=== PATIENT | female | born 1985 | race Caucasian/White ===

== ENCOUNTER 2021-07-02 08:12 | Inpatient (IN) ==
[2021-07-02] MEDS ORDERED: OXYTOCIN 30 UNITS/500 ML BAG IV PRN ×3 (09:17→17:21)
--- NOTE | 2021-07-02 09:26 | History & Physical Report ---
Date of Service July 02, 2021 Assessment & Plan (1) Premature rupture of membranes: Plan: Admit, routine labs, start Pitocin for augmentation General if patient request Anticipate spontaneous vaginal delivery (2) 40 weeks gestation of : (3) Elevated BP without diagnosis of hypertension: Plan: Noted elevated blood pressure x2, will obtain PIH labs. [place] the blood pressures greater than 4 hours, will meet criteria for at least gestational hypertension (4) AMA (advanced maternal age) multigravida 35+: Plan: Declined genetics (5) Obesity (BMI 30-39.9): History of Present Illness Chief Complaint: Leaking Primary Care Provider: Benedicto Garza MD Patient is a 36-year-old -0-1-1 at 40 weeks and 3 days dated by 7-week ultrasound who presented to labor and delivery for rupture of membranes at 6:45 AM this morning. Denies contractions, vaginal bleeding. Notes good movement. Denies headache, blurry vision, right upper quadrant or epigastric pain. Otherwise feeling well. Scheduled for induction on 07/03/2021. Complications this include advanced maternal age, declined genetics, class I obesity and Rh- status Allergies Allergy/AdvReac Type Severity Reaction Status Date / Time fisher Allergy Intermediate HIVES Verified 10/04/20 10:22 No Known Drug Allergies Allergy Unknown NONE Unverified 10/04/20 10:22 Home Medications Medication Instructions Recorded Confirmed Type vits no.124-ferrous fum 1 tab PO DAILY 07/02/21 07/02/21 History 27 mg iron-folic acid 800 mcg tablet ( Vitamin) Patient History Surgical History History of dental surgery Tooth extraction History of dilatation and curettage D&E FOR MAB Family History Grandmother (Paternal) Cancer Unknown Hypertension Grandfather (Paternal) Diabetes Grandfather (Maternal) Diabetes Mother Thyroid disorder Grandmother (Maternal) Thyroid disorder Social History Smoking Status: Never smoker Hx Alcohol Use: No Hx Substance Use: No Preferred Language: Georgian Monitoring Analyst Required: No Beliefs That Will Affect Care: None marital status: Current Living Situation: Spouse Other Information That Helps Us Care for You: No Feels Safe at Home: Yes Safety Concerns: Feels Safe At This Time OB History [employer] History See H+P Review of Systems All systems reviewed & are unremarkable except as noted in HPI & below Physical Exam Constitutional: WD/WN, vitals as above Respiratory: normal respiratory effort, lungs clear to auscultation Cardiovascular: RRR, no murmur, no edema Gastrointestinal (Abdomen): normal bowel sounds, soft, nontender, no hepatosplenomegaly Cephalic EFW 3800g Genitourinary: no vaginal lesions, no adnexal mass Sterile speculum: gross clear fluid from OS, nitrazine positive FHT: baseline 1 45-1 50, moderate variability, no accelerations, no decelerations, category 1 Tocometer: Quiescent Cervix: 3/50/-2 Results & Data ([facility]) Vital Signs (Past 12 Hours) Vital Signs Pulse BP 07/02/21 09:05 89 144/81 H 07/02/21 08:44 97 H 143/84 H
[2021-07-02 09:39] LABS: Hematocrit (blood only) 34.9 % (37-47); Mean Corpuscular Hemoglobin 31.4 pg (25-34); Mean Corpuscular Hgb Conc 34.4 g/dL (32-36); Mean Corpuscular Volume 91.4 fL (80-100); Mean Platelet Volume 9.8 fL (7.4-10.4); Platelet Count 247 K/uL (130-400); RDW Coefficient of Variation 12.9 % (11.5-14.5); RDW Standard Deviation 42.5 fL (36.4-46.3); Red Blood Count 3.82 M/uL (4.2-5.4); White Blood Count 9.41 K/uL (4.8-10.8)
[2021-07-02 10:07] LABS: Albumin Globulin Ratio 1.1 (0.9-2); Albumin Level 3.3 gm/dl (3.4-5.0); BUN Creatinine Ratio 20.4 (10-20); Bilirubin,Total 0.5 mg/dl (0.2-1.0); Calcium 8.7 mg/dl (8.5-10.1); Creatinine Clr Calc Pharmacy 220.1 ml/min; Est GFR (African American) 143.2 ml/min; Est GFR (Non-African American) 123.6 ml/min; Globulin 3.1 gm/dl (2.5-4.0); Potassium 3.7 mmol/L (3.5-5.1); Total Protein 6.4 gm/dl (6.0-8.3)
[2021-07-02] MEDS: LACTATED RINGER'S 1,000 ML IV PRN ×2 (10:14→14:21)
[2021-07-02 11:23] LABS: Creatinine Urine Random 79.7 mg/dl; Protein Creatinine Ratio Urine 0.3 (0-0.2); Total Protein Urine Random 20.4 mg/dl (0-11.9)
[2021-07-02] MEDS ORDERED: ePHEDrine sulfate 50 MG/ML AMP ONE (13:56)
[2021-07-02] MEDS ORDERED: SODIUM CHLORIDE 0.9% INJ 10 ML VIAL ONE (13:56)
[2021-07-02] MEDS ORDERED: fentaNYL citrate 100 MCG/2 ML VIAL ONE (13:56)
[2021-07-02] MEDS ORDERED: BUPIVACAINE 0.25% 30 ML VIAL ONE (13:57)
[2021-07-02] MEDS ORDERED: fentaNYL 2MCG/ML ROPIVACAINE 1.25MG/ML 100 ML BAG EPI ONE (13:57)
[2021-07-02] MEDS ORDERED: ONDANSETRON INJ 2 MG/ML 2 ML VIAL IV PRN (14:12)
[2021-07-02] MEDS ORDERED: NALOXONE HCL 0.4 MG/1 ML VIAL/CARP IV PRN (14:12)
[2021-07-02] MEDS ORDERED: diphenhydrAMINE 50 MG/ML VIAL IV PRN (14:12)
[2021-07-02] MEDS ORDERED: NALBUPHINE HCL INJ 10 MG/ML AMP IV PRN (14:12)
[2021-07-02] MEDS ORDERED: ePHEDrine sulfate 50 MG/ML AMP IV PRN (14:12)
[2021-07-02] MEDS ORDERED: fentaNYL 2MCG/ML ROPIVACAINE 1.25MG/ML 100 ML BAG EPI PRN (14:12)
[2021-07-02] MEDS ORDERED: NALOXONE HCL 1 MG in SODIUM CHLORIDE 0.9% 1000ML 1,000 ML IV PRN (14:12)
--- NOTE | 2021-07-02 14:26 | Anesthesiology Consultation ---
Date of Service July 02, 2021 Assessment & Plan Chart Review Chart Review: Patient NOT seen in Pre Admission Testing and Acceptable Risk for Labor Epidural Consults Requested none ASA ASA2 Proposed Anesthesia Anesthesia Type: Labor Epidural and CSE Risk / Benefits Reviewed With: PT / POA / Parent / Guardian, Accepts Plan and Informed Consent Obtained History Height/Weight Height: 5 ft 10 in Weight: 121.109 kg Allergies Allergy/AdvReac Type Severity Reaction Status Date / Time fisher Allergy Intermediate HIVES Verified 10/04/20 10:22 No Known Drug Allergies Allergy Unknown NONE Unverified 10/04/20 10:22 Medications Home Medications Medication Instructions Recorded Confirmed Last Taken vits no.124-ferrous fum 1 tab PO DAILY 07/02/21 07/02/21 07/01/21 27 mg iron-folic acid 800 mcg tablet ( Vitamin) Active Medications Generic Name Dose Route Start Last Admin Trade Name Freq PRN Reason Stop Dose Admin Lactated Ringer's 1,000 mls @ 125 mls/hr 07/02/21 09:17 07/02/21 14:21 Lr IV 07/04/21 09:16 999 mls/hr .Q8H PRN Administration L&D Protocol Protocol Oxytocin 30 units in 500 mls @ 4 mls/hr 07/02/21 09:20 07/02/21 12:00 Pitocin IV 07/04/21 09:19 0.36 units/hr .Q24H PRN 6 mls/hr Labor Induction/Augmentation Titration Protocol 0.24 UNITS/HR NPO Date Last Intake of Fluids: 07/02/21 Time Last Intake of Fluids: 12:00 Date Last Intake of Solids: 07/01/21 Time Last Intake of Solids: 18:00 Exercise / Class Metabolic Activity II 4-5 Yardwork/Stairs/Walk up hill Past Family History Family History Grandmother (Paternal) Cancer Unknown Hypertension Grandfather (Paternal) Diabetes Grandfather (Maternal) Diabetes Mother Thyroid disorder Grandmother (Maternal) Thyroid disorder Past Surgical History Surgical History History of dental surgery Tooth extraction History of dilatation and curettage D&E FOR MAB Past Anesthesia History No Hx of Anesthesia Complications and No Family Hx of Anesthesia Complications History of PONV No Hx of PONV and No Hx of Motion Sickness Social History Smoking Status: Never smoker Hx Alcohol Use: No Hx Substance Use: No substance use type: does not use Review of Systems no chest pain or sob Physical Exam Vital Signs Last Vital Signs Temp 36.7 C 07/02/21 13:30 Pulse 88 07/02/21 14:24 Resp 18 07/02/21 12:30 BP 109/58 L 07/02/21 13:53 Pulse Ox 98 07/02/21 14:24 Constitutional + obese ENMT Mouth: no TMJ abnormality Thyromental Distance: > or= 3.5 Finger Breadths Mallampati Class: II Neck normal visual inspection Respiratory normal respiratory effort Auscultation: lungs clear to auscultation bilaterally Cardiovascular Rate/Rhythm: regular rate and regular rhythm Musculoskeletal Spine: normal cervical ROM Neurologic moves all extremities Psychiatric Orientation: alert and oriented x 3 Testing Laboratory Results 07/02/21 09:26 07/02/21 09:26 Blood Type O Negative 07/02/21 09:26 Antibody Screen NEGATIVE 07/02/21 09:26
--- NOTE | 2021-07-02 15:27 | Labor Progress Brief Note ---
Date of Service July 02, 2021 Subjective Comfortable on epidural Assessment & Plan (1) Premature rupture of membranes: Plan: Anticipate spontaneous vaginal delivery (2) 40 weeks gestation of : (3) AMA (advanced maternal age) multigravida 35+: Plan: Declined genetics (4) Obesity (BMI 30-39.9): (5) Preeclampsia: Plan: Meets criteria at this point for elevated blood pressures 4 hours apart and a protein: creatinine ratio of 0.3 Current blood pressure 146/76 We will continue to monitor (6) Rh negative status during in third trimester: Plan: RhoGAM if indicated Admission and Anticipated Discharge Date Admission Date: July 02, 2021 Physical Exam Genitourinary: GHT: Baseline 155, moderate variability, no accelerations, variable decelerations Tocometer: Contractions every 2-minute, pit at 6 Results & Data ([place]) Vital Signs (Past 12 Hours) Vital Signs Temp Pulse Resp BP Pulse Ox 07/02/21 15:19 78 98 07/02/21 15:17 75 146/76 H 07/02/21 15:14 76 94 07/02/21 15:09 94 H 97 07/02/21 15:04 84 98 07/02/21 15:00 36.7 C 18 07/02/21 14:59 94 H 98 07/02/21 14:57 86 135/77 07/02/21 14:55 97 H 93 07/02/21 14:54 89 97 07/02/21 14:53 90 137/74 07/02/21 14:49 85 96 07/02/21 14:46 90 136/65 07/02/21 14:44 98 H 135/67 97 07/02/21 14:42 88 145/72 H 07/02/21 14:40 85 131/62 07/02/21 14:39 87 136/64 98 07/02/21 14:36 80 154/63 H 07/02/21 14:34 80 157/73 H 100 07/02/21 14:30 18 07/02/21 14:29 83 98 07/02/21 14:28 88 173/79 H 07/02/21 14:24 88 98 07/02/21 14:19 85 100 07/02/21 13:53 90 109/58 L 07/02/21 13:30 36.7 C 07/02/21 12:30 18 07/02/21 12:29 85 117/59 L 07/02/21 12:00 18 07/02/21 11:34 84 123/71 07/02/21 11:00 36.8 C 18 07/02/21 10:27 74 141/79 H 07/02/21 10:00 18 07/02/21 09:35 86 140/80 07/02/21 09:20 93 H 135/73 07/02/21 09:05 89 144/81 H 07/02/21 08:45 37.1 C 07/02/21 08:44 97 H 143/84 H
[2021-07-02] MEDS ORDERED: oxyCODONE/ACETAMINOPHEN 5mg/325mg TAB PO PRN (17:21)
[2021-07-02] MEDS ORDERED: ACETAMINOPHEN 325 MG TAB PO PRN (17:21)
[2021-07-02] MEDS ORDERED: BENZOCAINE 20% AER SPR 82.5 GM CAN EXT PRN (17:21)
[2021-07-02] MEDS ORDERED: HYDROCORTISONE ACETATE 25 MG SUPP PR PRN (17:21)
[2021-07-02] MEDS ORDERED: DIPHTHERIA/TETANUS/PERTUSSIS 0.5 ML SYR/VIAL IM ONE (17:21)
[2021-07-02] MEDS ORDERED: bisacodyL 10 MG SUPP PR PRN (17:21)
[2021-07-02] MEDS ORDERED: IBUPROFEN 600 MG TAB PO PRN (17:21)
--- NOTE | 2021-07-02 17:23 | Delivery Summary ---
Vaginal Delivery Summary Date of Service July 02, 2021 Vaginal Delivery Summary Delivery Note History synopsis: Patient is a 36-year-old -0-1-1 admitted at 40 weeks and 3 days for premature rupture of membranes. During admission patient was started for oxytocin for augmentation, and met criteria for preeclampsia without severe features based on elevated blood pressures 4 hours apart and protein creatinine ratio of 0.3. Patient received an epidural for pain control. She progressed to complete and I was called for delivery Delivery Summary: Patient was placed in the dorsal lithotomy position. She was prepped and draped in the usual sterile fashion. Upon maternal pushing the head was delivered atraumatically followed by the anterior shoulders, posterior shoulders then the remainder of the infants body. The infants mouth and nose were bulb suction below the level of the perineum. A male was delivered at 1707, weight pending with APGARS of 9 at 1 minute and9 at 5 minutes. The umbilical cord was clamped times two and cut after 1 minute of delayed cord clamping. The was handed off to the awaiting nursing staff. Cord blood gases were obtained. The placenta delivered intact with three vessel cord at 1710.noted trailing membranes with jeweler grasped with ring forceps and were able to be teased from the cervix. No remaining membranes were felt on examination. Placenta was sent pathology (hold). Thirty units of Pitocin were added to the IV fluid and allowed to run freely. Uterine massage was performed until uterus was deemed firm. Upon inspection of the perineum, vagina and cervix were intact.Second degree laceration was noted which was repaired with 3-0 vicryl in the usual fashion. Upon re-inspection the patient was hemostatic. Uterus again massaged and found to be firm. Needle and sponge counts were correct x2. Patient was stable and allowed to recover in L&D room. was stable and remained in room with mother in the Family Care Unit.
--- NOTE | 2021-07-02 17:36 | Anesthesia Procedure Note ---
Date of Service July 02, 2021 Anesthesia Post Epidural Note Vital Signs Vital Signs: Temp Pulse Resp BP Pulse Ox 36.7 C 75 20 126/74 91 07/02/21 15:00 07/02/21 17:21 07/02/21 16:00 07/02/21 17:21 07/02/21 17:10 Notes Mental Status: alert / awake / arousable and participated in evaluation Nausea / Vomiting: adequately controlled Pain: adequately controlled Airway Patency, RR, SpO2: stable & adequate BP & HR: stable & adequate Hydration State: stable & adequate Neuraxial Anesthesia: was administered and sensory block is resolving Anesthetic Complications: no major complications apparent and Pt Satisfied with anesthetic care Epidural: Removed without complications and With tip intact
[2021-07-03 07:10] LABS: Hematocrit (blood only) 31.3 % (37-47); Hemoglobin 10.5 g/dL (12.0-16.0); Mean Corpuscular Hemoglobin 31.1 pg (25-34); Mean Corpuscular Hgb Conc 33.5 g/dL (32-36); Mean Corpuscular Volume 92.6 fL (80-100); Mean Platelet Volume 9.8 fL (7.4-10.4); Platelet Count 212 K/uL (130-400); RDW Standard Deviation 43.3 fL (36.4-46.3); Red Blood Count 3.38 M/uL (4.2-5.4); White Blood Count 9.72 K/uL (4.8-10.8)
--- NOTE | 2021-07-03 07:38 | Obstetrical Progress Note ---
Date of Service July 03, 2021 Assessment & Plan Admission and Anticipated Discharge Date Admission Date: July 02, 2021 Subjective Patient is seen and examined. She feels well, no complaints. Desires d/c tis evening Ambulating without dizziness Voiding without difficulty Tolerating regular diet with out N&V Bleeding is minimal No fever/ chills/ CP/ SOB/ N&V/ Leg pain Breast feeding without problems Vital Signs Temp Pulse Resp BP Pulse Ox 07/03/21 04:00 37.1 C 68 20 124/74 99 07/03/21 00:15 36.5 C 75 20 114/74 98 07/02/21 20:59 36.5 C 97 H 18 134/84 98 Lab Results 07/02/21 07/02/21 07/02/21 Range/Units 09:15 09:26 09:26 WBC 9.41 (4.8-10.8) K/uL RBC 3.82 L (4.2-5.4) M/uL Hgb 12.0 (12.0-16.0) g/dL Hct 34.9 L (37-47) % MCV 91.4 (80-100) fL MCH 31.4 (25-34) pg MCHC 34.4 (32-36) g/dL RDW Std Deviation 42.5 (36.4-46.3) fL RDW Coeff of Heladio 12.9 (11.5-14.5) % Plt Count 247 (130-400) K/uL MPV 9.8 (7.4-10.4) fL Sodium (136-145) mmol/L Potassium (3.5-5.1) mmol/L Chloride (98-107) mmol/L Carbon Dioxide (21-32) mmol/L Anion Gap (3-11) BUN (6-23) mg/dl Creatinine (0.6-1.2) mg/dl Est Cr Clr Drug Dosing ml/min Est GFR ( Amer) ml/min Est GFR (Non-Af Amer) ml/min BUN/Creatinine Ratio (10-20) Glucose (70-99(Fasting)) mg/dl Calcium (8.5-10.1) mg/dl Total Bilirubin (0.2-1.0) mg/dl AST (13-39) U/L ALT (7-52) U/L Alkaline Phosphatase (34-104) U/L Total Protein (6.0-8.3) gm/dl Albumin (3.4-5.0) gm/dl Globulin (2.5-4.0) gm/dl Albumin/Globulin Ratio (0.9-2) Ur Random Creatinine 79.7 mg/dl U Random Total Protein 20.4 H (0-11.9) mg/dl Protein/Creatinin Ratio 0.3 H (0-0.2) RPR (Nonreactive) Blood Type O Negative Antibody Screen NEGATIVE 07/02/21 07/02/21 07/03/21 Range/Units 09:26 09:26 06:42 WBC 9.72 (4.8-10.8) K/uL RBC 3.38 L (4.2-5.4) M/uL Hgb 10.5 L (12.0-16.0) g/dL Hct 31.3 L (37-47) % MCV 92.6 (80-100) fL MCH 31.1 (25-34) pg MCHC 33.5 (32-36) g/dL RDW Std Deviation 43.3 (36.4-46.3) fL RDW Coeff of Heladio 13.0 (11.5-14.5) % Plt Count 212 (130-400) K/uL MPV 9.8 (7.4-10.4) fL Sodium 136 (136-145) mmol/L Potassium 3.7 (3.5-5.1) mmol/L Chloride 105 (98-107) mmol/L Carbon Dioxide 22 (21-32) mmol/L Anion Gap 9 (3-11) BUN 10 (6-23) mg/dl Creatinine 0.49 L (0.6-1.2) mg/dl Est Cr Clr Drug Dosing 220.1 ml/min Est GFR ( Amer) 143.2 ml/min Est GFR (Non-Af Amer) 123.6 ml/min BUN/Creatinine Ratio 20.4 H (10-20) Glucose 81 (70-99(Fasting)) mg/dl Calcium 8.7 (8.5-10.1) mg/dl Total Bilirubin 0.5 (0.2-1.0) mg/dl AST 14 (13-39) U/L ALT 8 (7-52) U/L Alkaline Phosphatase 101 (34-104) U/L Total Protein 6.4 (6.0-8.3) gm/dl Albumin 3.3 L (3.4-5.0) gm/dl Globulin 3.1 (2.5-4.0) gm/dl Albumin/Globulin Ratio 1.1 (0.9-2) Ur Random Creatinine mg/dl U Random Total Protein (0-11.9) mg/dl Protein/Creatinin Ratio (0-0.2) RPR Nonreactive (Nonreactive) Blood Type Antibody Screen PE: General: Alert, orientedx3, NAD Abd: soft, NT, fundus firm, below Umbilicus Perineum intact, Lochia rubra minimal Ext; NT, no edema AP: 36 yo s/p , ppd# 1 VSS Afebrile doing well Continue routine care All questions were answered D/C home after 5 pm if baby will be discharged Results & Data ([facility]) Vital Signs (Past 12 Hours) Vital Signs Temp Pulse Resp BP Pulse Ox 07/03/21 04:00 37.1 C 68 20 124/74 99 07/03/21 00:15 36.5 C 75 20 114/74 98 07/02/21 20:59 36.5 C 97 H 18 134/84 98
[2021-07-03] MEDS ORDERED: PRENATAL VITAMIN 1 TAB PO SCH ×2 (08:00→09:00)
[2021-07-03] MEDS ORDERED: FERROUS SULFATE 325 MG TAB PO SCH (08:00)
[2021-07-03] MEDS: DOCUSATE SODIUM 100 MG CAP PO SCH ×2 (08:29→08:31)
[2021-07-03] MEDS ORDERED: bisacodyL 5 MG TABEC PO SCH (20:00)
== END 2021-07-03 18:15 | disposition home or self-care (01) | DRG 807 ==
LOC: OPB 08:12 → 4S1 08:15 → 4E2 20:38
DX: O09.523 Supervision of elderly multigravida, third trimester; O99.214 Obesity complicating childbirth; Z37.0 Single live birth; E66.9 Obesity, unspecified; Z3A.40 40 weeks gestation of pregnancy; O14.94 Unspecified pre-eclampsia, complicating childbirth; O70.1 Second degree perineal laceration during delivery; O42.92 Full-term premature rupture of membranes, unspecified as to length of time between rupture and onset of labor

== ENCOUNTER 2022-11-20 07:44 | Inpatient (IN) ==
[2022-11-20] MEDS ORDERED: OXYTOCIN 30 UNITS/500 ML BAG IV PRN ×4 (10:36→18:16)
[2022-11-20] MEDS ORDERED: LIDOCAINE 1% LOCAL 20 ML VIAL INFIL PRN (10:36)
--- NOTE | 2022-11-20 10:41 | Obstetrical Progress Note ---
Date of Service November 20, 2022 Assessment & Plan (1) : Plan: Induction for prolonged gestation pt doing well FHR; CAT1 Ctx Minimal bedside sono: Vt VE; 1-2/thick/post Kelsey bulb inserted thru cervix.w/30 cc Pt tolerated procedure well Low dose pt pt agreed to procedure before bulb insertion Admission and Anticipated Discharge Date Admission Date: November 20, 2022 Results & Data Vital Signs (Past 12 Hours) Vital Signs Temp Pulse Resp BP 11/20/22 07:57 36.8 C 20 11/20/22 07:53 75 131/75
[2022-11-20] MEDS: LACTATED RINGER'S 1,000 ML IV PRN ×2 (11:11→15:59)
[2022-11-20 11:32] LABS: Hematocrit (blood only) 34.6 % (37.0-47.0); Hemoglobin 11.8 g/dl (12.0-16.0); Mean Corpuscular Hemoglobin 31.8 pg (25.0-34.0); Mean Corpuscular Hgb Conc 34.1 g/dL (32.0-36.0); Mean Corpuscular Volume 93.3 fL (80.0-100.0); Mean Platelet Volume 10.4 fL (9.4-12.4); Platelet Count 205 K/uL (130-400); RDW Standard Deviation 44.7 fL (36.4-46.3); Red Blood Count 3.71 M/uL (4.20-5.40); White Blood Count 7.88 K/ul (4.8-10.8)
[2022-11-20] MEDS ORDERED: Nursing to Pharmacy Communication SCH (12:27)
--- NOTE | 2022-11-20 15:36 | Obstetrical Progress Note ---
Date of Service November 20, 2022 Assessment & Plan (1) : Plan: Pt doing well FHR; CAT1 VE; 3/50/-3 Pitocin.: 12MU AROM with amnio hook Admission and Anticipated Discharge Date Admission Date: November 20, 2022 Results & Data Vital Signs (Past 12 Hours) Vital Signs Temp Pulse Resp BP 11/20/22 07:57 36.8 C 20 11/20/22 15:24 76 11/20/22 15:24 111/68 11/20/22 14:26 78 11/20/22 14:26 116/59 L 11/20/22 13:23 75 11/20/22 13:23 111/61 11/20/22 12:22 79 11/20/22 12:22 106/61 11/20/22 11:14 78 11/20/22 11:14 115/64 11/20/22 07:53 75 131/75
[2022-11-20] MEDS ORDERED: LIDOCAINE 2%/EPINEPHRINE 1:200,000 20 ML PF ONE (15:53)
[2022-11-20] MEDS ORDERED: BUPIVACAINE 0.25% PF 30 ML VIAL ONE (15:53)
[2022-11-20] MEDS ORDERED: ePHEDrine sulfate 50 MG/ML AMP ONE (15:53)
[2022-11-20] MEDS ORDERED: fentaNYL citrate PF 100 MCG/2 ML VIAL ONE (15:53)
[2022-11-20] MEDS ORDERED: SODIUM CHLORIDE 0.9% PF INJ 10 ML VIAL ONE (15:53)
[2022-11-20] MEDS ORDERED: fentaNYL 2MCG/ML ROPIVACAINE 1.25MG/ML 100 ML BAG EPI ONE (15:54)
[2022-11-20] MEDS ORDERED: NALBUPHINE HCL INJ 10 MG/ML AMP IV PRN (16:04)
[2022-11-20] MEDS ORDERED: SODIUM CHLORIDE 0.9% PF INJ 10 ML VIAL EPI STA (16:04)
[2022-11-20] MEDS ORDERED: diphenhydrAMINE 50 MG/ML VIAL IV PRN (16:04)
[2022-11-20] MEDS ORDERED: fentaNYL citrate PF 100 MCG/2 ML VIAL EPI STA (16:04)
[2022-11-20] MEDS ORDERED: ePHEDrine sulfate 50 MG/ML AMP IV PRN (16:04)
[2022-11-20] MEDS ORDERED: NALOXONE HCL 1 MG in SODIUM CHLORIDE 0.9% 1000ML 1,000 ML IV PRN (16:04)
[2022-11-20] MEDS ORDERED: LIDOCAINE 2%/EPINEPHRINE 1:200,000 20 ML PF EPI STA (16:04)
[2022-11-20] MEDS ORDERED: NALOXONE HCL 0.4 MG/1 ML VIAL/CARP IV PRN (16:04)
[2022-11-20] MEDS ORDERED: LIDOCAINE 2% MPF LOCAL 5 ML VIAL EPI PRN (16:04)
[2022-11-20] MEDS ORDERED: ROPIVACAINE 0.5% PF 5 MG/ML 20 ML VIAL EPI PRN (16:04)
[2022-11-20] MEDS ORDERED: fentaNYL 2MCG/ML ROPIVACAINE 1.25MG/ML 100 ML BAG EPI PRN (16:04)
[2022-11-20] MEDS ORDERED: BUPIVACAINE 0.25% PF 30 ML VIAL EPI STA (16:04)
[2022-11-20] MEDS ORDERED: BUPIVACAINE 0.25% PF 30 ML VIAL EPI PRN (16:04)
[2022-11-20] MEDS ORDERED: fentaNYL citrate PF 100 MCG/2 ML VIAL EPI PRN (16:04)
[2022-11-20] MEDS ORDERED: SODIUM CHLORIDE 0.9% PF INJ 10 ML VIAL EPI PRN (16:04)
--- NOTE | 2022-11-20 16:05 | Anesthesiology Consultation ---
Date of Service November 20, 2022 Assessment & Plan Chart Review Chart Review: Patient NOT seen in Pre Admission Testing and Acceptable Risk for Labor Epidural Proposed Anesthesia Anesthesia Type: Labor Epidural History Height/Weight Height: 5 ft 11 in Weight: 121.109 kg Allergies Allergy/AdvReac Type Severity Reaction Status Date / Time fisher Allergy Intermediate HIVES Verified 02/17/22 09:52 No Known Drug Allergies Allergy Unknown NONE Unverified 02/17/22 09:52 Medications Home Medications Medication Instructions Recorded Confirmed Last Taken ferrous sulfate 325 mg (65 mg 325 mg PO DAILY 11/20/22 11/20/22 11/20/22 07:00 iron) tablet (Iron (ferrous sulfate)) vits no.124-ferrous fum 1 tab PO DAILY 11/20/22 11/20/22 11/19/22 07:00 27 mg iron-folic acid 800 mcg tablet ( Vitamin) Active Medications Generic Name Dose Route Start Last Admin Trade Name Freq PRN Reason Stop Dose Admin Lactated Ringer's 1,000 mls @ 125 mls/hr 11/20/22 10:36 11/20/22 15:59 Lr IV 11/22/22 10:35 999 mls/hr .Q8H PRN Administration L&D Protocol Protocol Oxytocin 30 units in 500 mls @ 14 mls/hr 11/20/22 10:36 11/20/22 15:34 Pitocin IV 11/22/22 10:35 0.84 units/hr .Q24H PRN 14 mls/hr Labor Induction/Augmentation Titration Protocol 0.84 UNITS/HR Past Medical History Medical History (Updated 11/20/22 @ 10:39 by Miguel Toney MD) 40 weeks gestation of AMA (advanced maternal age) multigravida 35+ Obesity (BMI 30-39.9) Rh negative status during in third trimester Past Family History Family History Grandmother (Paternal) Cancer Unknown Hypertension Grandfather (Paternal) Diabetes Grandfather (Maternal) Diabetes Mother Thyroid disorder Grandmother (Maternal) Thyroid disorder Past Surgical History Surgical History History of dental surgery Tooth extraction History of dilatation and curettage D&E FOR MAB Social History Smoking Status: Never smoker Do You Dip or Chew Tobacco: No Hx Alcohol Use: No Hx Substance Use: No substance use type: does not use Physical Exam Vital Signs Last Vital Signs Temp 36.8 C 11/20/22 07:57 Pulse 76 11/20/22 15:24 Resp 20 11/20/22 07:57 BP 111/68 11/20/22 15:24 Testing Laboratory Results 11/20/22 09:11 Blood Type O Negative 11/20/22 09:08 Antibody Screen NEGATIVE 11/20/22 09:08
[2022-11-20] MEDS ORDERED: miSOPROStoL 200 MCG TAB ONE (18:06)
[2022-11-20] MEDS ORDERED: METHYLERGONOVINE MALEATE 0.2 MG/ML AMP ONE (18:07)
[2022-11-20] MEDS ORDERED: BENZOCAINE 20% SPRY 85 APPLN/85 GM CAN EXT PRN (18:16)
[2022-11-20] MEDS ORDERED: bisacodyL 10 MG SUPP PR PRN (18:16)
[2022-11-20] MEDS ORDERED: METHYLERGONOVINE MALEATE 0.2 MG/ML AMP IM ONE (18:16)
[2022-11-20] MEDS ORDERED: ACETAMINOPHEN 325 MG TAB PO PRN (18:16)
[2022-11-20] MEDS ORDERED: miSOPROStoL 200 MCG TAB PR ONE (18:16)
[2022-11-20] MEDS ORDERED: DIPHTHERIA/TETANUS/PERTUSSIS Vaccine (Tdap, Age 7+yrs) 0.5mL SYR/VL IM ONE (18:16)
[2022-11-20] MEDS ORDERED: HYDROCORTISONE ACETATE 25 MG SUPP PR PRN (18:16)
[2022-11-20] MEDS ORDERED: IBUPROFEN 600 MG TAB PO PRN (18:16)
--- NOTE | 2022-11-20 18:16 | Delivery Summary ---
Vaginal Delivery Summary Date of Service November 20, 2022 Vaginal Delivery Summary DELIVERY NOTE Patient delivered a live male in left occiput anterior presentation there was nuchal cord which was easily reduced. Infant was delivered and placed on mother's abdomen. Delayed cord clamping was performed. Cord blood is obtained Cord gasses not obtained Meconium is absent Placenta is spontaneously delivered. Placenta appears grossly normal and has 3 vessel cord Inspection of the perineum showed a second-degree midline laceration. Laceration is repaired in layers with 2-0 Vicryl in layers Rectal exam post repair showed good sphincter tone no sutures palpated in the rectum. Estimated blood loss is 450 cc per Infants weight and scores are in the pediatric record Mother and baby are stable in in the recovery
--- NOTE | 2022-11-20 20:00 | Anesthesia Procedure Note ---
Date of Service November 20, 2022 Anesthesia Post Epidural Note Vital Signs Vital Signs: Temp Pulse Resp BP Pulse Ox 36.8 C 74 20 118/58 L 98 11/20/22 17:31 11/20/22 19:45 11/20/22 19:15 11/20/22 19:45 11/20/22 18:09 Notes Mental Status: alert / awake / arousable and participated in evaluation Nausea / Vomiting: adequately controlled Pain: adequately controlled Airway Patency, RR, SpO2: stable & adequate BP & HR: stable & adequate Hydration State: stable & adequate Neuraxial Anesthesia: was administered and sensory block is resolving Anesthetic Complications: no major complications apparent and Pt Satisfied with anesthetic care Epidural: Removed without complications and With tip intact
[2022-11-20] MEDS ORDERED: DOCUSATE SODIUM 100 MG CAP PO SCH (21:00)
[2022-11-21 06:34] LABS: Hematocrit (blood only) 32.3 % (37.0-47.0); Hemoglobin 11.4 g/dl (12.0-16.0); Mean Corpuscular Hemoglobin 32.3 pg (25.0-34.0); Mean Corpuscular Hgb Conc 35.3 g/dL (32.0-36.0); Mean Corpuscular Volume 91.5 fL (80.0-100.0); Mean Platelet Volume 10.1 fL (9.4-12.4); Platelet Count 172 K/uL (130-400); RDW Standard Deviation 42.6 fL (36.4-46.3); Red Blood Count 3.53 M/uL (4.20-5.40); White Blood Count 8.91 K/ul (4.8-10.8)
[2022-11-21] MEDS ORDERED: PRENATAL VITAMIN 1 TAB PO SCH (08:00)
--- NOTE | 2022-11-21 09:00 | Obstetrical Progress Note ---
Date of Service November 21, 2022 Assessment & Plan Admission and Anticipated Discharge Date Admission Date: November 20, 2022 Subjective Patient is seen and examined. She feels well, no complaints. Desires d/c tonigh Ambulating without dizziness Voiding without difficulty Tolerating regular diet with out N&V Bleeding is minimal No fever/ chills/ CP/ SOB/ N&V/ Leg pain Bottle feeding without problems Vital Signs Temp Pulse Resp BP Pulse Ox O2 Del Method 11/21/22 05:14 37 C 86 20 101/68 98 Room Air 11/21/22 00:58 37 C 76 18 121/76 99 Room Air 11/20/22 21:15 36.6 C 81 18 113/68 96 Room Air 11/20/22 21:16 36.6 C 81 18 113/68 96 Room Air Lab Results 11/20/22 11/20/22 11/21/22 Range/Units 09:08 09:11 06:10 WBC 7.88 8.91 (4.8-10.8) K/ul RBC 3.71 L 3.53 L (4.20-5.40) M/uL Hgb 11.8 L 11.4 L (12.0-16.0) g/dl Hct 34.6 L 32.3 L (37.0-47.0) % MCV 93.3 91.5 (80.0-100.0) fL MCH 31.8 32.3 (25.0-34.0) pg MCHC 34.1 35.3 (32.0-36.0) g/dL RDW Std Deviation 44.7 42.6 (36.4-46.3) fL RDW Coeff of Heladio 13.0 13.0 (11.5-14.5) % Plt Count 205 172 (130-400) K/uL MPV 10.4 10.1 (9.4-12.4) fL Blood Type O Negative Antibody Screen NEGATIVE PE: General: Alert, orientedx3, NAD Abd: soft, NT, fundus firm, below Umbilicus Perineum intact, Lochia rubra minimal Ext; NT, no edema AP: 37 yo s/p , ppd# 1 VSS Afebrile doing well Continue routine care All questions were answered D/C home tonight after 24 hours Discussed when to call Results & Data Vital Signs (Past 12 Hours) Vital Signs Temp Pulse Pulse Resp BP BP Pulse Ox 11/21/22 05:14 37 C 86 20 101/68 98 11/21/22 00:58 37 C 76 18 121/76 99 11/20/22 21:15 36.6 C 81 18 113/68 96 11/20/22 21:16 36.6 C 81 18 113/68 96 11/20/22 21:00 87 11/20/22 21:00 111/54 L O2 Del Method 11/21/22 05:14 Room Air 11/21/22 00:58 Room Air 11/20/22 21:15 Room Air 11/20/22 21:16 Room Air 11/20/22 21:00 11/20/22 21:00
[2022-11-21] MEDS ORDERED: bisacodyL 5 MG TABEC PO SCH (20:00)
== END 2022-11-21 19:05 | disposition home or self-care (01) | DRG 807 ==
LOC: 4S1 07:44 → 4E2 21:43